=== PATIENT | male | born 1955 | race Caucasian/White ===

== ENCOUNTER 2018-12-25 08:28 | Outpatient (CLI) | payer OTHER | END 2018-12-25 08:29 | disposition home or self-care (01) | LOC: SC 08:28 | PROVIDERS: ATTEND Nurse Practitioner Family | DX: G47.33 Obstructive sleep apnea (adult) (pediatric) (principal); G47.00 Insomnia, unspecified | CPT/HCPCS: 99212; 99214 ==

== ENCOUNTER 2020-06-12 20:26 | Outpatient (CLI) | payer MEDICARE, OTHER | END 2020-06-12 20:27 | disposition home or self-care (01) | LOC: COV 20:26 | PROVIDERS: ATTEND Family Medicine | DX: R06.02 Shortness of breath (principal); R53.83 Other fatigue; Z20.828 Contact with and (suspected) exposure to other viral communicable diseases ==

== ENCOUNTER 2023-03-30 10:45 | Outpatient (CLI) | payer OTHER, MEDICARE ==
[2023-03-30 18:02] LABS: BASOPHILS # (AUTO) 0.1 10^3/uL (0.0-0.1); BASOPHILS % (AUTO) 1.2 %; EOSINOPHILS # (AUTO) 0.2 10^3/uL (0.0-0.7); EOSINOPHILS % (AUTO) 3.2 %; HCT - HEMATOCRIT 43.2 % (42.0-52.0); HGB - HEMOGLOBIN 13.9 g/dL (14.0-18.0); LYMPHOCYTES # (AUTO) 2.3 10^3/uL (1.5-3.5); LYMPHOCYTES % (AUTO) 35.8 %; MEAN CORPUSCULAR HEMOGLOBIN 28.4 pg (27.0-31.0); MEAN CORPUSCULAR HGB CONC 32.2 g/dL (32.0-36.0); MEAN CORPUSCULAR VOLUME 88.2 fL (80.0-94.0); MEAN PLATELET VOLUME 10.5 fL (7.4-11.4); MONOCYTES # (AUTO) 0.6 10^3/uL (0.0-1.0); MONOCYTES % (AUTO) 8.6 %; NEUTROPHILS # (AUTO) 3.3 10^3/uL (1.5-6.6); NEUTROPHILS % (AUTO) 50.9 %; PLT - PLATELET COUNT 262 10^3/uL (130-450); RED CELL DISTRIBUTION WIDTH 13.2 % (12.0-15.0); WHITE BLOOD COUNT 6.5 x10^3/uL (4.8-10.8)
[2023-03-30 18:12] LABS: ALBUMIN 4.5 g/dL (3.2-5.5); ALBUMIN/GLOBULIN RATIO 1.7 (1.0-2.2); BILIRUBIN,TOTAL 0.7 mg/dL (0.2-1.0); POTASSIUM 4.3 mmol/L (3.5-4.5); TOTAL PROTEIN 7.2 g/dL (6.4-8.9)
[2023-03-30 18:21] LABS: TROPONIN I HIGH SENSITIVITY 30.6 ng/L (2.3-19.7)
== END 2023-03-30 11:00 | disposition home or self-care (01) ==
LOC: LAB.N 10:45
PROVIDERS: ATTEND Family Medicine
DX: R07.89 Other chest pain (principal)
CPT/HCPCS: 36415; 80053; 84484; 85025

== ENCOUNTER 2023-07-11 14:57 | Day surgery (SDC) | payer MEDICARE, OTHER ==
--- NOTE | 2023-07-11 15:48 | ED Physician Documentation ---
PD HPI ABD PAIN - Stated complaint Stated Complaint: ABD PX,CRAMPS,FEVER - Chief complaint Chief Complaint: Abd Pain - History obtained from History obtained from: Patient - Additional information Additional information: This is a very nice 67-year-old gentleman who is generally healthy at baseline. He states that on Tuesday, 2 days ago, he had an intermittent sharp right-sided abdominal pain. It was sometimes in upper quadrant sometimes in the lower quadrant. In between that pain, he felt fine. He did not have any nausea vomiting but does state that he was having fevers up to 103 or 104. He did not have any diarrhea or constipation. He continued to tolerate p.o. though appetite less than normal. Today he was feeling somewhat better and thought that the pain had subsided and he was on his way to recovery however then he did have another episode of sharp right sided abdominal pain and a fever this he presented to the ER. He last ate around noon, ate some soup. He tolerated this well and it did not seem to make the pain worse. He took some ibuprofen or Tylenol yesterday but none today. He is otherwise feeling well, Denies any cough or URI symptoms, no chest pain or dyspnea, no dysuria urgency or frequency. He has a history of hernia repair as a child, no other abdominal surgeries. PD PAST MEDICAL HISTORY - Past Medical History Past Medical History: No - Past Surgical History Past Surgical History: No - Present Medications Home Medications: Ambulatory Orders Medication Instructions Recorded Confirmed Aspirin Chewable [[facility] Clarke 81 mg PO DAILY 07/11/23 07/11/23 Aspirin] Finasteride [Proscar] 5 mg PO DAILY 07/11/23 07/11/23 Simvastatin [Zocor] 20 mg PO DAILY 07/11/23 07/11/23 Tamsulosin [Flomax] 1 cap PO DAILY 07/11/23 07/11/23 - Allergies Allergies/Adverse Reactions: Allergies Allergy/AdvReac Type Severity Reaction Status Date / Time acetaminophen [From Percocet] Allergy Emesis Verified 07/11/23 15:04 oxycodone [From Percocet] Allergy Emesis Verified 07/11/23 15:04 - Social History Does the pt smoke?: No Smoking Status: Never smoker Does the pt have substance abuse?: No - Immunizations Immunizations are current?: Yes - POLST Patient has POLST: No PD ED PE NORMAL - Vitals Vital signs reviewed: Yes - General General: Alert and oriented X 3, No acute distress, Well developed/nourished - HEENT HEENT: Atraumatic, Moist mucous membranes - Cardiac Cardiac: RRR, No murmur - Respiratory Respiratory: No respiratory distress, Clear bilaterally - Abdomen Abdomen: Normal bowel sounds, Soft, Non distended, Other (Tender right lower quadrant.) Results - Vitals Vitals: Vital Signs - 24 hr 07/11/23 07/11/23 15:04 15:49 Temperature 36.5 C 37.6 C Heart Rate 98 77 Respiratory 16 16 Rate Blood Pressure 148/81 H 136/91 H O2 Saturation 94 96 Oxygen O2 Source Room air - Labs Labs: Laboratory Tests 07/11/23 07/11/23 07/11/23 15:25 15:40 15:40 WBC 11.9 H RBC 4.72 Hgb 13.5 L Hct 41.1 L MCV 87.1 MCH 28.6 MCHC 32.8 RDW 13.2 Plt Count 248 MPV 9.6 Neut # (Auto) 9.1 H Lymph # (Auto) 1.4 L Frontier # (Auto) 1.3 H Eos # (Auto) 0.1 Baso # (Auto) 0.1 Absolute Nucleated RBC 0.00 Nucleated RBC % 0.0 Sodium 137 Potassium 3.8 Chloride 103 Carbon Dioxide 27 Anion Gap 7.0 BUN 24 H Creatinine 1.1 Estimated GFR (MDRD) 67 L Glucose 101 Lactic Acid Calcium 9.5 Total Bilirubin 0.9 AST 16 ALT 18 Alkaline Phosphatase 52 Total Protein 7.0 Albumin 4.4 Globulin 2.6 Albumin/Globulin Ratio 1.7 Lipase 10 L Urine Color DARK YELLOW Urine Clarity CLEAR Urine pH 6.0 Ur Specific Sultan >=1.030 H Urine Protein TRACE Urine Glucose (UA) NEGATIVE Urine Ketones TRACE Urine Occult Blood MODERATE H Urine Nitrite NEGATIVE Urine Bilirubin NEGATIVE Urine Urobilinogen 1 (NORMAL) Ur Leukocyte Esterase NEGATIVE Urine RBC 6-10 H Urine WBC 0-3 Ur Squamous Epith Cells NONE SEEN Urine Crystals 6-10 Uric Acid Urine Bacteria None Seen Ur Microscopic Review INDICATED Urine Culture Comments NOT INDICATED 07/11/23 15:40 WBC RBC Hgb Hct MCV MCH MCHC RDW Plt Count MPV Neut # (Auto) Lymph # (Auto) Frontier # (Auto) Eos # (Auto) Baso # (Auto) Absolute Nucleated RBC Nucleated RBC % Sodium Potassium Chloride Carbon Dioxide Anion Gap BUN Creatinine Estimated GFR (MDRD) Glucose Lactic Acid 0.7 Calcium Total Bilirubin AST ALT Alkaline Phosphatase Total Protein Albumin Globulin Albumin/Globulin Ratio Lipase Urine Color Urine Clarity Urine pH Ur Specific Sultan Urine Protein Urine Glucose (UA) Urine Ketones Urine Occult Blood Urine Nitrite Urine Bilirubin Urine Urobilinogen Ur Leukocyte Esterase Urine RBC Urine WBC Ur Squamous Epith Cells Urine Crystals Urine Bacteria Ur Microscopic Review Urine Culture Comments - Rads (name of study) No standard instances Relevant Findings:: Final report received, See rad report PD Medical Decision Making - ED course Complexity details: reviewed results, re-evaluated patient, considered differential, d/w patient, d/w cosmetic sales consultant ED course: 67-year-old male presented with intermittent right-sided abdominal pain as described in HPI. The patient is well-appearing here on physical exam, afebrile and nontoxic though reporting fever at home therefore we did obtain a sepsis work-up, and with significant right lower quadrant pain I was concerned for possible appendicitis versus cholelithiasis or cholecystitis versus a diverticulitis. We obtained labs which are generally reassuring, he has very mildly elevated white blood cell count but otherwise stable labs. A CT abdomen pelvis was obtained which shows an acute appendicitis. Patient was started on Zosyn and the general surgeon was notified. We did not have on-call general surgery today however Dr. Diaz has very kindly agreed to come in and see this patient and take him to surgery. He has been n.p.o. since around noon today and will remain n.p.o. till postop. Patient declines any pain or nausea medication at this time. Departure - Departure Disposition: [facility] DC/Xfer Clinical Impression: Appendicitis Qualifiers: Appendicitis type: acute appendicitis Acute appendicitis type: with localized peritonitis Appendicitis gangrene presence: without gangrene Appendicitis perforation presence: without perforation Appendicitis abscess presence: without abscess Qualified Code(s): K35.30 - Acute appendicitis with localized peritonitis, without perforation or gangrene Condition: Good Forms: PCP List
[2023-07-11 15:53] LABS: BASOPHILS # (AUTO) 0.1 10^3/uL (0.0-0.1); BASOPHILS % (AUTO) 0.5 %; EOSINOPHILS # (AUTO) 0.1 10^3/uL (0.0-0.7); EOSINOPHILS % (AUTO) 0.5 %; HCT - HEMATOCRIT 41.1 % (42.0-52.0); HGB - HEMOGLOBIN 13.5 g/dL (14.0-18.0); LYMPHOCYTES # (AUTO) 1.4 10^3/uL (1.5-3.5); MEAN CORPUSCULAR HEMOGLOBIN 28.6 pg (27.0-31.0); MEAN CORPUSCULAR HGB CONC 32.8 g/dL (32.0-36.0); MEAN CORPUSCULAR VOLUME 87.1 fL (80.0-94.0); MEAN PLATELET VOLUME 9.6 fL (7.4-11.4); MONOCYTES # (AUTO) 1.3 10^3/uL (0.0-1.0); MONOCYTES % (AUTO) 10.5 %; NEUTROPHILS # (AUTO) 9.1 10^3/uL (1.5-6.6); NEUTROPHILS % (AUTO) 76.3 %; PLT - PLATELET COUNT 248 10^3/uL (130-450); RED BLOOD COUNT 4.72 10^6/uL (4.70-6.10); RED CELL DISTRIBUTION WIDTH 13.2 % (12.0-15.0); WHITE BLOOD COUNT 11.9 x10^3/uL (4.8-10.8)
[2023-07-11 16:03] LABS: ALBUMIN 4.4 g/dL (3.2-5.5); ALBUMIN/GLOBULIN RATIO 1.7 (1.0-2.2); BILIRUBIN,TOTAL 0.9 mg/dL (0.2-1.0); CALCIUM 9.5 mg/dL (8.5-10.3); CREATININE 1.1 mg/dL (0.6-1.3); POTASSIUM 3.8 mmol/L (3.5-4.5)
[2023-07-11 16:08] LABS: BILIRUBIN,URINE NEGATIVE (NEGATIVE); GLUCOSE, URINE (UA) NEGATIVE (NEGATIVE); KETONES,URINE (UA) TRACE mg/dL (NEGATIVE); LEUKOCYTE ESTERASE, URINE NEGATIVE (NEGATIVE); NITRITE,URINE NEGATIVE (NEGATIVE); OCCULT BLOOD,URINE MODERATE (NEGATIVE); PROTEIN,URINE TRACE mg/dL (NEGATIVE); UROBILINOGEN,URINE 1 (NORMAL) E.U./dL (NORMAL)
[2023-07-11 16:10] LABS: CLARITY,URINE CLEAR (CLEAR)
[2023-07-11 16:27] LABS: BACTERIA,URINE None Seen /HPF (None Seen); SQUAMOUS EPITHELIAL CELL,UR NONE SEEN (<= Few); WBC,URINE 0-3 /HPF (0-3)
--- NOTE | 2023-07-11 17:08 | CT Report ---
PROCEDURE: ABDOMEN/PELVIS W INDICATIONS: right upper and lower abd pain x 2 days w/ fever CONTRAST: 100ml omni 300 TECHNIQUE: After the administration of intravenous contrast, 5 mm thick sections acquired from the diaphragms to the symphysis. 5 mm thick coronal and sagittal reformats were acquired. For radiation dose reducti on, the following was used: automated exposure control, adjustment of mA and/or kV according to yoselin ent size. COMPARISON: None FINDINGS: Image quality: Excellent. Lung bases and heart: Minimal right basilar pleural effusion and atelectasis. Small hiatal hernia. Liver: No solid mass. Gallbladder and biliary tree: No radiopaque stones or wall thickening. No biliary dilation. Spleen: No splenomegaly. Pancreas: No pancreatic ductal dilation. Adrenals: No adrenal nodule. Kidneys and ureters: No hydronephrosis. No renal cystic lesion which requires follow up. No solid mas s. Bowel and peritoneum: Acute appendicitis. The appendix is distended and filled with fluid with enhanc ement of the wall and inflammatory change in the adjacent fat. It measures 11 mm in diameter. There i s no clear evidence of rupture. No free air or free fluid or abscess cavity is noted. There are enlar ged lymph nodes in the vicinity consistent with reactive adenopathy. Lymph nodes: No central or retroperitoneal adenopathy. Vessels: No infrarenal aortic aneurysm. PELVIS Reproductive organs: At least moderate prostatomegaly. Bladder: No abnormal wall thickening, accounting for underdistension. Pelvic lymph nodes: No pelvic adenopathy by size criteria. Bones: No aggressive osseous abnormality. Other: Fat-containing right inguinal hernia. IMPRESSION: 1. Acute appendicitis without evidence of rupture. 2. At least moderate prostatomegaly. 3. Fat-containing right inguinal hernia. 4. Hiatal hernia. Reviewed by: Simeon Mir MD on 07/11/2023 5:07 PM PST Approved by: Simeon Mir MD on 07/11/2023 5:07 PM PST Station ID: [id number]
[2023-07-11] MEDS ORDERED: PIPERACILLIN/TAZOBACTAM 4.5 GM in SODIUM CHLORIDE 0.9% MINIBAG 100 ML IV STA (17:33)
[2023-07-11] MEDS ORDERED: fentaNYL 100 MCG/2 ML VIAL ONE (18:41)
[2023-07-11] MEDS ORDERED: ROCURONIUM 50 MG/5 ML VIAL ONE (18:41)
[2023-07-11] MEDS ORDERED: MIDAZOLAM 2 MG/2 ML VIAL ONE (18:41)
--- NOTE | 2023-07-11 18:46 | ANESTHESIA ---
Pre-Anesthesia VS, & Labs - Diagnosis acute appendicitis - Procedure laparoscopic appendectomy Vital Signs: Temp Pulse Resp BP Pulse Ox O2 Flow Rate 37.6 C 77 16 136/91 H 96 07/11/23 15:49 07/11/23 15:49 07/11/23 15:49 07/11/23 15:49 07/11/23 15:49 Height: 5 ft 7 in Weight (kg): 87.6 kg Body Mass Index: 30.2 BMI Classification: Obese - Lab Results Current Lab Results: Laboratory Tests 07/11/23 15:40: Lactic Acid 0.7 07/11/23 15:40: Sodium 137, Potassium 3.8, Chloride 103, Carbon Dioxide 27, Anion Gap 7.0, BUN 24 H, Creatinine 1.1, Estimated GFR (MDRD) 67 L, Glucose 101, Calcium 9.5, Total Bilirubin 0.9, AST 16, ALT 18, Alkaline Phosphatase 52, Total Protein 7.0, Albumin 4.4, Globulin 2.6, Albumin/Globulin Ratio 1.7, Lipase 10 L 07/11/23 15:40: WBC 11.9 H, RBC 4.72, Hgb 13.5 L, Hct 41.1 L, MCV 87.1, MCH 28.6, MCHC 32.8, RDW 13.2, Plt Count 248, MPV 9.6, Neut # (Auto) 9.1 H, Lymph # (Auto) 1.4 L, [place] # (Auto) 1.3 H, Eos # (Auto) 0.1, Baso # (Auto) 0.1, Absolute Nucleated RBC 0.00, Nucleated RBC % 0.0 Fish Bones: 07/11/23 15:40 07/11/23 15:40 Home Medications and Allergies Home Medications: Ambulatory Orders Aspirin Chewable [[facility] Clarke Aspirin] 81 mg PO DAILY 07/11/23 Finasteride [Proscar] 5 mg PO DAILY 07/11/23 Simvastatin [Zocor] 20 mg PO DAILY 07/11/23 Tamsulosin [Flomax] 1 cap PO DAILY 07/11/23 Aspirin Chewable [[facility] Aspirin] 81 mg PO DAILY 07/11/23 Finasteride [Proscar] 5 mg PO DAILY 07/11/23 Simvastatin [Zocor] 20 mg PO DAILY 07/11/23 Tamsulosin [Flomax] 1 cap PO DAILY 07/11/23 Allergies/Adverse Reactions: Allergies Allergy/AdvReac Type Severity Reaction Status Date / Time acetaminophen [From Percocet] Allergy Emesis Verified 07/11/23 15:04 oxycodone [From Percocet] Allergy Emesis Verified 07/11/23 15:04 Anes History & Medical History - Anesthetic History Anesthesia Complications: reports: No previous complications - Medical History Cardiovascular: reports: None Pulmonary: reports: None Gastrointestinal: reports: GERD Urinary: reports: Benign prostate hypertrophy Neuro: reports: None Musculoskeletal: reports: None Smoking Status: Never smoker Psychosocial: reports: Alcohol (rare) History of Cancer?: No - Surgical History General: reports: Other (inguinal hernia repair) Exam General: Alert, Oriented x3 Dental: WNL Mouth Opening: Greater than 4 Fingerbreadths Neck Mobility: Normal Mallampati classification: II Thyromental Distance: greater than 6 cm Respiratory: Lungs clear Cardiovascular: Regular rate Mental/Cognitive Status: Alert/Oriented X3 Plan Anesthesia Type: General Consent for Procedure(s) Verified and Reviewed: Yes Code Status: Attempt Resuscitation ASA classification: 2-Mild systemic disease Is this case an emergency?: Yes
[2023-07-11] MEDS ORDERED: LIDOCAINE 1%-EPI 1:100000 20 ML MDV ONE (19:10)
[2023-07-11] MEDS ORDERED: BUPIVACAINE 0.25% PF 30 ML VIAL ONE (19:11)
[2023-07-11] MEDS ORDERED: fentaNYL 100 MCG/2 ML VIAL IVP PRN (19:25)
[2023-07-11] MEDS ORDERED: HYDROmorphone 0.5 MG/0.5 ML SYRINGE IVP PRN (19:25)
[2023-07-11] MEDS ORDERED: ONDANSETRON 4 MG/2 ML VIAL IVP PRN ×2 (19:25→20:59)
[2023-07-11] MEDS ORDERED: ePHEDrine 50 MG/ML VIAL IVP PRN (19:25)
[2023-07-11] MEDS ORDERED: METOCLOPRAMIDE 10 MG/2 ML VIAL IVP PRN (19:25)
[2023-07-11] MEDS ORDERED: NALOXONE 0.4 MG/ML VIAL IVP PRN (19:25)
[2023-07-11] MEDS ORDERED: ATROPINE ABBOJECT 1 MG/10 ML SYRINGE IVP PRN (19:25)
[2023-07-11] MEDS ORDERED: LIDOCAINE 1%-EPI 1:100000 20 ML MDV SUBQ ONE (19:45)
[2023-07-11] MEDS ORDERED: ACETAMINOPHEN 1,000 MG/100 ML 1,000 MG/100 ML BAG IV ONE (19:47)
[2023-07-11] MEDS ORDERED: DEXAMETHASONE 4 MG/ML VIAL ONE (19:47)
[2023-07-11] MEDS ORDERED: ONDANSETRON 4 MG/2 ML VIAL ONE (19:47)
[2023-07-11] MEDS ORDERED: LACTATED RINGERS 1,000 ML IV SCH (20:00)
[2023-07-11] MEDS ORDERED: iohexoL-300 100 ML VIAL IVP ONE (20:40)
--- NOTE | 2023-07-11 20:46 | CONSULTATION NOTE ---
Referring Provider Name of Referring Provider:: Dr. Columba Cox Consult Date: 07/11/23 Chief Complaint - Chief Complaint Chief Complaint: RLQ pain History of Present Illness - Admitted From Admitted From:: Outpatient - ED - History Obtained From Records Reviewed: Yes History obtained from: Patient primarily Exam Limitations: None. - History of Present Illness HPI Comment/Other: This is an exceedingly pleasant 67-year-old male who I was asked by Dr. Barron to evaluate for signs and symptoms consistent with acute appendicitis. The patient states that his symptoms started Tuesday around noon with epigastric abdominal discomfort. This lasted until this morning. He was very uncomfortable. This affected his sleep. Motion worsened the pain. He was able to eat some food and drink some fluids to keep himself hydrated but he was not hungry. There was no nausea nor vomiting. This morning he thought that he had resolved the situation but the pain returned worse than before and that necessitated his trip to the emergency department. This afternoon the pain was localized to the right lower quadrant. History - Past Medical History Cardiovascular: reports: None Respiratory: reports: None Neuro: reports: None GI: reports: GERD : reports: Benign prostate hypertrophy Musculoskeletal: reports: None MRSA Hx?: No - Past Surgical History General: reports: Other (inguinal hernia repair) - POLST Patient has POLST: No Meds/Allgy - Home Medications Home Medications: Ambulatory Orders Medication Instructions Recorded Confirmed Aspirin Chewable [[facility] Clarke 81 mg PO DAILY 07/11/23 07/11/23 Aspirin] Finasteride [Proscar] 5 mg PO DAILY 07/11/23 07/11/23 Simvastatin [Zocor] 20 mg PO DAILY 07/11/23 07/11/23 Tamsulosin [Flomax] 1 cap PO DAILY 07/11/23 07/11/23 - Allergies Allergies/Adverse Reactions: Allergies Allergy/AdvReac Type Severity Reaction Status Date / Time acetaminophen [From Percocet] Allergy Emesis Verified 07/11/23 15:04 oxycodone [From Percocet] Allergy Emesis Verified 07/11/23 15:04 Review of Systems - Constitutional Constitutional: reports: Fever. denies: Chills, Malaise, Weakness - Eyes Eyes: denies: Pain - Ears, Nose & Throat Ears, Nose & Throat: denies: Ear pain - Cardiovascular Cariovascular: denies: Irregular heart rate, Palpitations, Chest pain - Respiratory Respiratory: denies: Cough, Sputum production - Gastrointestinal Gastrointestinal: reports: Abdominal pain (Primarily located in the right lower quadrant. The patient points to McBurney's point.). denies: Black stools, Bloody stools, Nausea, Vomiting - Genitourinary Genitourinary: denies: Dysuria - Musculoskeletal Musculoskeletal: denies: Muscle pain, Back pain - Integumentary Integumentary: denies: Rash, Pruritis - Neurological Neurological: denies: General weakness, Focal weakness, Headache, Dizziness - Psychiatric Psychiatric: denies: Depression, Anxiety Exam - Vital Signs Reviewed Vital Signs: Yes Vital Signs: Vital Signs x48h Temp Pulse Resp BP Pulse Ox 07/11/23 15:49 37.6 C 77 16 136/91 H 96 07/11/23 15:04 36.5 C 98 16 148/81 H 94 - Physical Exam General Appearance: positive: No acute distress, Alert, Other (Evaluated in room [address] [facility]'s emergency department.) Eyes Bilateral: positive: No lid inflammation, Conjunctivae nml, No scleral icterus ENT: positive: Dry mucous membranes Neck: positive: Trachea midline Respiratory: positive: Chest non-tender, No respiratory distress, Breath sounds nml Cardiovascular: positive: Regular rate & rhythm Abdomen: positive: Tenderness (At McBurney's point.), Abnml bowel sounds (Decreased.). negative: Hepatomegaly, Splenomegaly Skin: positive: Color nml, No rash, Warm, Dry. negative: Diaphoresis Extremities: positive: Non-tender, Nml appearance Neurologic/Psychiatric: positive: Oriented x3, Motor nml, Sensation nml, Mood/affect nml Conclusion/Plan - Lab Results Lab results reviewed: Yes Fish Bones: 07/11/23 15:40 07/11/23 15:40 - Diagnostic Imaging Results Diagnostic Imaging Results: positive: Final report reviewed - Other Other Results/Comments: The constellation of the patient's symptoms as well as the radiographic findings and laboratory results all supported diagnosis of acute appendicitis. This was discussed with the patient. The indications procedure alternatives and possible complications including but not limited to infection, bleeding, and were fully explained to the patient all questions answered. The possibility of not operating was also discussed with the patient. Verbal and written consent was obtained. The patient was maintained n.p.o. and preoperative antibiotics were given for prophylax against surgical infection. I explained that as long as the appendix was not ruptured he should be able to go home this evening. The patient vocalized an understanding. He states that his does not drive at night and was wondering whether or not he could drive his car himself and I explained that no he cannot drive himself home. I asked him to let us know if there is any way we can make his stay [facility] more comfortable to please let us know. 45 minutes of [id number] time was spent with the patient the majority in discussion and in completion of this chart. CPT 30655
[2023-07-11] MEDS ORDERED: SUGAMMADEX 200 MG/2 ML VIAL IVP ONE (20:49)
--- NOTE | 2023-07-11 20:53 | OPERATIVE REPORT ---
Operative Report - General Procedure Date: 07/11/23 Planned Procedure: Laparoscopic appendectomy Pre-Op Diagnosis: Acute appendicitis Procedure Performed: Laparoscopic appendectomy Post Op Diagnosis: Acute nonperforated appendicitis - Procedure Note Primary Surgeon: Jairo Diaz MD Anesthesia Provider: Britt Mendieta CRNA Anesthesia Technique: General ET tube, Local (20 mL of 1% lidocaine with epinephrine) IV Fluids (mL): 800 Estimated Blood Loss (mL): 5 Drain/Tube Type: Other (None.) Findings: Inflamed appendix with an appendicolith at the base. Surrounded by mucopurulent exudate. Not ruptured. Right inguinal hernia was clearly evident and photographed. Complications: None. - Other Other Information/Narrative: After verbal and written informed consent was obtained detailing the operation, the alternatives to the operation including no operation, risks of infection, bleeding requiring transfusion with its risks, nerve injury, and and after I met with the patient confirming the surgery, the patient was brought to the operative suite and placed supine on the operating table. Great care was taken to avoid pressure points to prevent pressure necrosis or nerve injury. Monitoring devices were applied along with TEDs and pneumatic compressive stockings (to prevent DVT). The patient received preoperative antibiotics for surgical prophylaxis. Britt Mendieta CRNA sedated and anesthetized the patient for the entire procedure. The patient was prepped and draped in usual sterile manner. A "time in" then confirmed that the patient was identified with 3 identifiers (name, date, and medical record number), the history and physical was in the chart, the signed consent confirming the procedure was in the chart, the patient was in the correct position, the aforementioned prophylactic measures were in place were given, we had the correct personnel and equipment to complete the procedure and that anesthesia, and the surgical team was given an opportunity to express any concerns. With the agreement of everyone in the room, we proceeded with the operation. The initial incision was at the umbilicus and dissection to the linea alba was completed using blunt dissection. The linea alba was grasped with a Megan and incised. In a similar manner the peritoneum was grasped and incised using Metzenbaum scissors. In this location, a 12 mm blunt tipped, balloon tipped port was placed and the balloon was inflated to keep the port in position. The abdominal cavity was insufflated with carbon dioxide to a steady-state pressure of 15 mmHg. 2 additional 5 mm ports were placed in standard locations for laparoscopic appendectomy (above and below the umbilicus at the midline) under direct vision of the 30 degree laparoscope and without incident. The patient was then placed in Trendelenburg position and was rotated slightly to their left. Examination of the right lower quadrant revealed a thickened and clearly infected/inflamed appendix with fibrinous exudate in a mildly retrocecal position. This was carefully grasped to avoid rupture and using traction and countertraction the appendiceal mesentery was defined. The appendiceal mesentery was taken using sequential application of the LigaSure. Once the base of the appendix was encountered the appendix was transected using a laparoscopic CHANA stapler with a GI load that had been placed through the umbilical port and the camera was switched to a 5 mm camera and placed through one of the 5 mm ports. An Endopouch was placed through the umbilical port and the appendix was placed into the Endopouch and the Endopouch was secured. Examination of the staple line noted it to be incomplete due to the inclusion of the appendicolith in the staple line. The stump was then picked up using a ratcheting grasper and another stapler was placed at the base and fired. Although this staple line appeared intact I was concerned about the closure of the serosa. Photograph showed that the mucosa was definitely intact but the serosa may not have been. As such I buttressed the staple line suturing the mesenteric fat to the base of the cecum using a 4-0 Vicryl. Once this was completed I tested the buttress to ensure that it was snug up against the base and it was. The left right lower quadrant was then copiously irrigated using 2 L of warm sterile saline. I inj ected the port sites at the peritoneal, fascial, and skin levels under direct vision with 1% lidocaine with epinephrine. All ports and the Endopouch containing the appendix were removed. Following appendiceal removal, the remaining carbon dioxide was expelled from the abdomen. The fascia the umbilicus was approximated using 2 [id number] 0 Vicryl sutures. The skin at each port site was approximated using a subcuticular 4-0 Monocryl. The skin was cleaned of its prep and Dermabond was applied. At this point a "timeout" was performed that confirmed that all counts were correct, the procedure that was performed, the blood loss, the IV fluids administered, the patient's condition and any concerns of the operating team had. Dressings were then applied. Having tolerated the procedure well, the patient was extubated and taken to recovery room in good and stable condition. The plan is for outpatient discharge when the patient is adequately recovered. CPT 73165 This document was created in part using voice recognition technology. Because of the inherent limitations of the system, occasional same sounding word substitutions and grammatical errors do occur and persist despite proofreading. Please read this document for context.
[2023-07-11] MEDS ORDERED: LACTATED RINGERS 1,000 ML IV ONE (20:57)
[2023-07-11] MEDS ORDERED: HYDROcod/ACETAM 5/325 MG TABLET PO PRN (20:59)
[2023-07-11] MEDS ORDERED: ACETAMINOPHEN/CODEINE 300 MG/30 MG TABLET PO PRN (21:00)
[2023-07-11] MEDS ORDERED: KETOROLAC 30 MG/ML VIAL ONE (21:20)
--- NOTE | 2023-07-11 21:37 | ANESTHESIA POST OP EVALUATION ---
Anesthesia Post Eval - Post Anesthesia Eval Vitals: Last Vital Signs Temp 36.9 C 07/11/23 21:28 Pulse 89 07/11/23 21:28 Resp 20 07/11/23 21:28 BP 135/78 H 07/11/23 21:28 Pulse Ox 95 07/11/23 21:28 O2 Flow Rate CV Function Including HR & BP: Stable Pain Control: Satisfactory Nausea & Vomiting: Negative Mental Status: Baseline Respiratory Status: Airway Patent Hydration Status: Satisfactory Anesthesia Complications: None
[2023-07-11 21:40] VITALS: O2SAT 95
[2023-07-11 22:07] VITALS: BP 140/79
== END 2023-07-11 22:38 | disposition home or self-care (01) ==
LOC: ED 14:57 → SDS 18:06 → MS2 21:15 → SDS 22:38
PROVIDERS: ATTEND Surgery
PROC: 0DTJ4ZZ Resection of Appendix, Percutaneous Endoscopic Approach (ICD-10-PCS; principal; 2023-07-11 19:00)
DX: K35.30 Acute appendicitis with localized peritonitis, without perforation or gangrene (principal); K40.90 Unilateral inguinal hernia, without obstruction or gangrene, not specified as recurrent; E66.9 Obesity, unspecified; Z68.30 Body mass index [BMI] 30.0-30.9, adult; N40.0 Benign prostatic hyperplasia without lower urinary tract symptoms
CPT/HCPCS: 36415; 44970; 74177; 80053; 81001; 83605; 83690; 85025; 87040; 96365; 99284; 99285; A9270; J0131; J7120; Q9967; 81003; 87086

== ENCOUNTER 2023-10-28 07:58 | Outpatient (CLI) | payer OTHER ==
--- NOTE | 2023-10-28 11:59 | XRAY Report ---
PROCEDURE: Shoulder 2+V LT INDICATIONS: STRAIN OF MUSCLE(S) AND TENDON(S) OF THE LEFT SHOULDER TECHNIQUE: 3 views of the shoulder were acquired. COMPARISON: None. FINDINGS: Bones: No fractures or dislocations. No suspicious bony lesions. There are degenerative changes are present at the acromioclavicular joint. Visualized ribs appear intact. Soft tissues: There is mild calcific tendinitis. The visualized lungs are within normal limits. IMPRESSION: No acute bony abnormality. Mild calcific tendinitis. Acromioclavicular joint degenerative changes. Reviewed by: Cinthia Li MD on 10/28/2023 11:58 AM PST Approved by: Cinthia Li MD on 10/28/2023 11:58 AM PST Station ID: [id number]
== END 2023-10-28 23:59 | disposition home or self-care (01) ==
LOC: DI.N 07:58
PROVIDERS: ATTEND Family Medicine
DX: S46.012A Strain of muscle(s) and tendon(s) of the rotator cuff of left shoulder, initial encounter (principal); M75.32 Calcific tendinitis of left shoulder; M19.012 Primary osteoarthritis, left shoulder

== ENCOUNTER 2024-04-11 07:13 | Outpatient (CLI) | payer MEDICARE, OTHER ==
[2024-04-11 11:56] LABS: BASOPHILS # (AUTO) 0.1 10^3/uL (0.0-0.1); BASOPHILS % (AUTO) 0.9 %; EOSINOPHILS # (AUTO) 0.3 10^3/uL (0.0-0.7); EOSINOPHILS % (AUTO) 4.7 %; HCT - HEMATOCRIT 43.2 % (42.0-52.0); HGB - HEMOGLOBIN 13.8 g/dL (14.0-18.0); LYMPHOCYTES # (AUTO) 2.1 10^3/uL (1.5-3.5); LYMPHOCYTES % (AUTO) 32.8 %; MEAN CORPUSCULAR HEMOGLOBIN 28.3 pg (27.0-31.0); MEAN CORPUSCULAR HGB CONC 31.9 g/dL (32.0-36.0); MEAN CORPUSCULAR VOLUME 88.5 fL (80.0-94.0); MEAN PLATELET VOLUME 10.4 fL (7.4-11.4); MONOCYTES # (AUTO) 0.5 10^3/uL (0.0-1.0); MONOCYTES % (AUTO) 8.2 %; NEUTROPHILS # (AUTO) 3.4 10^3/uL (1.5-6.6); NEUTROPHILS % (AUTO) 53.2 %; PLT - PLATELET COUNT 270 10^3/uL (130-450); RED BLOOD COUNT 4.88 10^6/uL (4.70-6.10); RED CELL DISTRIBUTION WIDTH 13.2 % (12.0-15.0); WHITE BLOOD COUNT 6.4 x10^3/uL (4.8-10.8)
[2024-04-11 12:15] LABS: ESTIMATED AVERAGE GLUCOSE 103 mg/dL (70-100); HEMOGLOBIN A1c% 5.2 % (4.27-6.07)
[2024-04-11 12:24] LABS: ALBUMIN 4.3 g/dL (3.2-5.5); ALBUMIN/GLOBULIN RATIO 1.5 (1.0-2.2); ALKALINE PHOSPHATASE 57 IU/L (42-121); ALT ALANINE AMINOTRANSFERASE 24 IU/L (10-60); AST ASPARTATE AMINOTRANSFERASE 20 IU/L (10-42); BILIRUBIN,TOTAL 0.9 mg/dL (0.2-1.0); BUN - BLOOD UREA NITROGEN 17 mg/dL (6-20); CALCIUM 9.7 mg/dL (8.5-10.3); CARBON DIOXIDE - CO2 27 mmol/L (21-32); CHLORIDE 107 mmol/L (101-111); CHOL/HDL RATIO 2.9 (<5.0); CHOLESTEROL 148 mg/dL; CREATININE 0.9 mg/dL (0.6-1.3); GFR - MDRD 84 (>89); GLUCOSE 90 mg/dL (74-104); HDL CHOLESTEROL 51 mg/dL; LDL CHOLESTEROL,CALCULATED 84 mg/dL; LDL/HDL RATIO 1.6 (<3.6); POTASSIUM 4.2 mmol/L (3.5-4.5); SODIUM 139 mmol/L (135-145); TOTAL PROTEIN 7.2 g/dL (6.4-8.9); TRIGLYCERIDES 65 mg/dL; VLDL CHOLESTEROL 13 mg/dL
[2024-04-11 12:34] LABS: THYROID STIMULATING HORMONE 3.83 uIU/mL (0.34-5.60)
== END 2024-04-11 07:14 | disposition home or self-care (01) ==
LOC: LAB.N 07:13
PROVIDERS: ATTEND Nurse Practitioner Family
DX: Z02.89 Encounter for other administrative examinations (principal); E66.9 Obesity, unspecified; E78.5 Hyperlipidemia, unspecified; Z12.5 Encounter for screening for malignant neoplasm of prostate; N40.0 Benign prostatic hyperplasia without lower urinary tract symptoms; R03.0 Elevated blood-pressure reading, without diagnosis of hypertension; Z79.899 Other long term (current) drug therapy
CPT/HCPCS: 36415; 80053; 80061; 83036; 84443; 85025; G0103; 83721; 84153